=== PATIENT | male | born 1965 | race Caucasian/White ===

== ENCOUNTER 2017-02-12 05:28 | Inpatient (IN) | payer BC ==
[2017-02-01 13:53] VITALS: Ht 177.8 cm; Wt 130.8 kg
--- NOTE | 2017-02-01 14:34 | PAT Medication Instructions ---
Service Date Feb 01, 2017. Current Home Medication List Acetaminophen (Tylenol), 1,000 MG PO PRN Atorvastatin (Lipitor), 10 MG PO QAM Desonide 0.05% (Desowen 0.05%), 1 APPLN TOP 3-4XWEEK Doxycycline Monohydrate (Monodox), 40 MG PO QAM Fish Oil ([place]-3), 1 CAP PO QAM Fluticasone Propionate (Nasal) (Flonase Allergy Relief), 2 SPRAYS INTNAS PRN Lisinopril (Zestril), 5 MG PO QAM Metoprolol Succ (Toprol Xl) (Toprol-Xl ), 100 MG PO QAM Multivitamin (Multivitamin), 1 TAB PO QAM Oxymetazoline Hcl (Afrin 0.05% Nasal [place]), 1 SPRAY INTNAS PRN Rivaroxaban (Xarelto), 20 MG PO QPM [Augmentin], 1 TAB PO BID [Metronidazol], 1 DOSE TOP 3-4XWEEK Medication Instructions For Your Scheduled Surgery -Continue as directed: [Augmentin], 1 TAB PO BID Oxymetazoline Hcl (Afrin 0.05% Nasal [place]), 1 SPRAY INTNAS PRN - Hold the following medications 2 weeks prior to surgery: Fish Oil ([place]-3), 1 CAP PO QAM - Hold the following medications per your cardiologists instructions: Rivaroxaban (Xarelto), 20 MG PO QPM per anesthesia guidelines, will need to be held 3 days for spinal block - Hold the following medications 24 hours prior to surgery: [Metronidazol], 1 DOSE TOP 3-4XWEEK Desonide 0.05% (Desowen 0.05%), 1 APPLN TOP 3-4XWEEK - Hold the following medications the morning of surgery: Lisinopril (Zestril), 5 MG PO QAM Multivitamin (Multivitamin), 1 TAB PO QAM - Take the following medications the morning of surgery with a sip of water: Atorvastatin (Lipitor), 10 MG PO QAM Doxycycline Monohydrate (Monodox), 40 MG PO QAM Metoprolol Succ (Toprol Xl) (Toprol-Xl ), 100 MG PO QAM Acetaminophen (Tylenol), 1,000 MG PO PRN (if needed) Fluticasone Propionate (Nasal) (Flonase Allergy Relief), 2 SPRAYS INTNAS PRN ( if needed) - Take the following medications as scheduled the night before surgery: Acetaminophen (Tylenol), 1,000 MG PO PRN (if needed) Fluticasone Propionate (Nasal) (Flonase Allergy Relief), 2 SPRAYS INTNAS PRN ( if needed) If you have any questions please call us at [phone] or [phone] or [phone]
--- NOTE | 2017-02-01 15:04 | DIAGNOSTIC IMAGING REPORT ---
CHEST 2 VIEWS ROUTINE CLINICAL HISTORY: Preoperative evaluation. COMPARISON STUDY: No previous studies for comparison. FINDINGS: Lung volumes are normal. No pneumothorax or pleural effusion is present. Pulmonary vascularity is normal. There is no consolidation. Mild cardiomegaly is noted. IMPRESSION: 1. No acute cardiopulmonary findings. 2. Mild cardiomegaly. Electronically signed by: Scott Forbes M.D. 02/01/2017 3:02 PM Dictated Date/Time: 02/01/2017 3:02 PM
[2017-02-01 15:06] LABS: BASO % 1.2 %; BASO ABS # 0.09 K/uL (0-0.2); COMPLETE YES; EOS % 2.9 %; HEMATOCRIT 48.3 % (42-52); IG% 0.6 %; LYMPH % 21.2 %; LYMPH ABS # 1.63 K/uL (1.2-3.4); MEAN CELL VOLUME 93.6 fL (80-100); MEAN CORPUSCULAR HEMOGLOBIN 30.8 pg (25-34); MEAN CORPUSCULAR HGB CONC 32.9 g/dl (32-36); MEAN PLATELET VOLUME 10.4 fL (7.4-10.4); MONO % 14.5 %; NEUT % 59.6 %; PLATELET COUNT 202 K/uL (130-400); RED BLOOD COUNT 5.16 M/uL (4.7-6.1)
[2017-02-01 15:17] LABS: PARTIAL THROMBOPLASTIN RATIO 1.1; PROTHROMBIN TIME (PATIENT) 10.9 SECONDS (9.0-12.0)
[2017-02-01 15:18] LABS: BUN/CREATININE RATIO 12.7 (10-20); CALCIUM 9.6 mg/dl (8.5-10.1); CREATININE 0.91 mg/dl (0.60-1.40); POTASSIUM 4.4 mmol/L (3.5-5.1)
--- NOTE | 2017-02-06 09:35 | HISTORY & PHYSICAL EXAMINATION ---
DATE OF ADMISSION: 02/12/2017 CHIEF COMPLAINT: Persistent right knee pain and discomfort. HISTORY OF PRESENT ILLNESS: A 51-year-old gentleman who recently moved to the area from [place] who presents for surgical treatment of his right knee. He has got a 7+ year history of right knee pain and discomfort that has gradually gotten worse over time. He does have a history of a knee arthroscopy done back in 2006. He has also been using an director clinical research brace which has become less successful over time. Pain is constant. The more he walks, the more it hurts. He limps as the day goes on. It is affecting his quality of life and he would like to have his knee fixed. PAST MEDICAL HISTORY: Significant for: 1. Atrial fibrillation status post coblation but still on Xarelto. 2. Elevated cholesterol. 3. Hypertension. 4. Obesity with a BMI of 41.5. 5. Low back pain. PAST SURGICAL HISTORY: Include: 1. Tonsillectomy. 2. Lumbar laminectomy. 3. Orchiectomy. 4. Right knee arthroscopy done 2006. ALLERGIES: None. CURRENT MEDICINES: 1. Metoprolol 100 mg a day. 2. Lisinopril 5 mg a day. 3. Lipitor 10 mg a day. 4. Xarelto 20 mg a day. 5. Doxycycline 40 mg a day. 6. Multivitamin. 7. Fish oil. 8. Desonide cream. 9. Metronidazole cream. SOCIAL HISTORY: A 51-year-old male. He is . One drink per day. Chews tobacco. FAMILY HISTORY: Negative for heart disease, diabetes, or blood clots. REVIEW OF SYSTEMS: Negative for diabetes. Denies any neurologic problems, vascular problems or bleeding disorders. He is on Xarelto for Afib. He says he is no longer in atrial fibrillation. No history of DVT or PE in the past. PHYSICAL EXAMINATION: GENERAL: Reveals a healthy, pleasant, middle-aged male. He looks to be in pretty good health. HEAD, EYES, EARS, NOSE, AND THROAT: Exam is benign. NECK: Supple. No lymphadenopathy. LUNGS: Clear to auscultation. HEART: Regular rate and rhythm. ABDOMEN: Soft, nontender, nondistended. EXTREMITY EXAMINATION: Grossly neurovascularly intact except as follows: Examination of the right knee reveals the patient walks independently. Does limp on his right side. He has got varus alignment to his knee with a little bit of a varus thrust with weightbearing. Well healed portal sites. Small knee effusion. Range of motion 5 to 125. No instability. A little stiffness with hip motion. X-RAYS: X-rays of the right knee were reviewed. It shows advanced medial compartment DJD. He has got near complete loss of his joint space. He has got a little bit of tibial femoral subluxation. He has got some patellofemoral arthritis as well. ASSESSMENT: A 51-year-old male with a 7+ year history of right knee pain and discomfort, unresponsive to conservative treatment. He had knee arthroscopy in the past. He has failed all conservative care, it is affecting his quality of life and he would like to have his right knee replaced. PLAN: We will take him to the operating room and do a right total knee replacement. The risks and benefits of this procedure were explained to the patient including but not limited to DVT, PE, , infection, neurological injury, vascular injury, bleeding problem, pain, limited range of motion, stiffness, failure to relieve his symptoms, incomplete relief of symptoms, need for further surgery in the future, fracture, leg length inequality, nerve palsy, etc. The patient understands and desires to proceed. Informed consent was obtained. I did talk to him about holding his lisinopril the morning of surgery and his Xarelto 3 days preop. He will take his atenolol the morning of surgery. Will likely put him on low dose Xarelto 24 hours postop and then increase him to full dose probably about 3 days postop.
[~2017-02-12] VITALS: Ht 177.8 cm; Wt 130.8 kg
[2017-02-12] VITALS (8 sets, daily range): BP systolic 120–155; BP diastolic 67–99; PULSE 61–99; TEMP 36.6–37.7; O2SAT 94–99
[~2017-02-12 05:28] MED LIST: ACET-1256 PO; AFRINWC INTNAS; ATOR10TA82 PO; AUGMENTIN PO; DOXY100C76 PO; DSWCR TOP; FLUT0.15 INTNAS; LISI-729 PO; METO100T44 PO; METRONIDAZOL TOP; MULT-506 PO; OMEG10007 PO; RIVA1TAB4 PO
[2017-02-12] MEDS ORDERED: CEFAZOLIN 3000MG IV PUSH 15 ML IV SCH (06:00)
[2017-02-12] MEDS ORDERED: GABAPENTIN 300 MG CAP PO SCH (06:00)
[2017-02-12] MEDS ORDERED: FAMOTIDINE 20 MG TAB PO SCH (06:00)
[2017-02-12] MEDS ORDERED: ACETAMINOPHEN 500 MG TAB PO SCH (06:00)
[2017-02-12] MEDS ORDERED: BUPIVACAINE LIPOSOME 266 MG, BUPIVACAINE/EPINEPHRINE INJ 50 ML, SODIUM CHLORIDE 0.9% PF... INFIL SCH ×3 (06:00)
[2017-02-12] MEDS ORDERED: SCOPOLAMINE 1.5 MG TDSY TD SCH (06:00)
[2017-02-12] MEDS ORDERED: ROPIVACAINE 0.5% 5 MG/ML 30 ML VIAL ONE (06:28)
[2017-02-12] MEDS ORDERED: BUPIVACAINE 0.5 % 5 MG/1 ML PF 10ML VIAL ONE (06:28)
[2017-02-12] MEDS ORDERED: BUPIVACAINE/EPINEPHRINE 0.25% 1:200,000 30 ML VIAL ONE (06:32)
[2017-02-12] MEDS ORDERED: BACITRACIN 50000 UNIT VIAL ONE (06:32)
[2017-02-12] MEDS ORDERED: SODIUM CHLORIDE 0.9% PF 50 ML VIAL ONE (06:32)
[2017-02-12] MEDS ORDERED: BUPIVACAINE LIPOSOME 1/3% 266 MG/20 ML VIAL INFIL ONE (06:32)
--- NOTE | 2017-02-12 06:41 | History & Physical Bridge Note ---
H&P Re-Evaluation Bridge Note: I have examined the patient, reviewed the History & Physical and in the interval since the performance of the History & Physical I have noted the following changes of clinical significance: No changes noted
[2017-02-12] MEDS ORDERED: MIDAZOLAM HCL 1 MG/ML 2ML VIAL ONE ×3 (06:45→07:22)
[2017-02-12] MEDS ORDERED: FENTANYL CITRATE INJ 50 MCG/1 ML 2 ML VIAL ONE (06:45)
[2017-02-12] MEDS ORDERED: LIDOCAINE HCL 2% 2 ML VIAL (20MG/ML) ONE (06:45)
[2017-02-12] MEDS ORDERED: PROPOFOL IV EMULSION 10 MG/ML 20 ML VIAL IV ONE (06:45)
[2017-02-12] MEDS ORDERED: NURSING VERBAL MED ORDER ONE (07:30)
[2017-02-12] MEDS ORDERED: TRANEXAMIC ACID INJ 1,000 MG in SYRINGE 0 ML IV STA (07:36)
[2017-02-12] MEDS ORDERED: EpHEDrine SULFATE 50MG/5ML SYR ONE (07:44)
[2017-02-12] MEDS ORDERED: HYDROmorphone INJ 2 MG/ML SYR/VIAL IV PRN (08:15)
[2017-02-12] MEDS ORDERED: ATROPINE SULFATE 0.1 MG/ML 5ML SYR IV PRN (08:15)
[2017-02-12] MEDS ORDERED: ONDANSETRON INJ 2 MG/ML 2 ML VIAL IV PRN ×2 (08:15→08:45)
[2017-02-12] MEDS ORDERED: EpHEDrine SULFATE INJ 50 MG/ML AMP IV PRN (08:15)
[2017-02-12] MEDS ORDERED: PHENYLEPHRINE 100MCG/ML 5ML SYR IV PRN (08:15)
--- NOTE | 2017-02-12 08:40 | [facility] Post Operative Brief Note ---
Immediate Operative Summary Operative Date Feb 12, 2017. Pre-Operative Diagnosis Right Knee Advanced Degenerative Joint Disease Post-Operative Diagnosis Right Knee Advanced Degenerative Joint Disease Procedure(s) Performed Right Total Knee Arthroplasty Surgeon Dr. Sánchez Network Operations Technician Surgeon(s) ANN Fritz Estimated Blood Loss 50 cc Findings Right Knee DJD Fluids (cc crystalloids) 1800 cc Specimens A. Right Knee Bone and Tissue Drains None Anesthesia Spinal Complication(s) None Disposition Recovery Room / PACU
[2017-02-12] MEDS ORDERED: SILVER SULFADIAZINE 1% CR 50 GM JAR EXT PRN (08:45)
[2017-02-12] MEDS ORDERED: METOCLOPRAMIDE HCL INJ 5 MG/ML 2 ML VIAL IV PRN (08:45)
[2017-02-12] MEDS ORDERED: FLUTICASONE PROPIONATE NA SPR 16 GM BTL PRN (08:45)
[2017-02-12] MEDS ORDERED: ZOLPIDEM TARTRATE 5 MG TAB PO PRN (08:45)
[2017-02-12] MEDS ORDERED: ALUMINUM/MAGNESIUM/SIMETH (MAALOX MAX) 30 ML UDC PO PRN (08:45)
[2017-02-12] MEDS ORDERED: TAMSULOSIN HCL 0.4 MG CAP PO PRN (08:45)
[2017-02-12] MEDS ORDERED: MAGNESIUM HYDROXIDE SUSP 30 ML UDC PO PRN (08:45)
[2017-02-12] MEDS ORDERED: BISACODYL 10 MG SUPP PR PRN (08:45)
[2017-02-12] MEDS ORDERED: DiphenhydrAMINE HCL 50 MG/ML VIAL IV PRN (08:45)
[2017-02-12] MEDS ORDERED: MULTIVITAMIN TAB PO SCH (09:00)
--- NOTE | 2017-02-12 09:07 | DIAGNOSTIC IMAGING REPORT ---
R KNEE 1 OR 2 VIEWS ROUTINE CLINICAL HISTORY: AP/LATERAL IN PACU RIGHT KNEE postoperative evaluation COMPARISON: None. DISCUSSION: Anatomic alignment status post total right knee arthroplasty expected postoperative soft tissue change. IMPRESSION: Anatomic alignment status post right knee arthroplasty The above report was generated using voice recognition software. It may contain grammatical, syntax or spelling errors. Electronically signed by: Jeffrey Roth M.D. 02/12/2017 9:05 AM Dictated Date/Time: 02/12/2017 9:00 AM
--- NOTE | 2017-02-12 09:20 | Anesthesiology Progress Note ---
Anesthesia Post Op Note Date & Time Feb 12, 2017 at 09:20 Vital Signs Pain Intensity: 0 Vital Signs Past 12 Hours Date Time Temp Pulse Resp B/P (MAP) Pulse Ox O2 Delivery O2 Flow Rate FiO2 02/12/17 09:10 37 66 16 128/61 97 Nasal Cannula 2 02/12/17 09:00 67 16 105/63 97 Oxymask 10 02/12/17 08:50 71 16 112/59 99 Oxymask 10 02/12/17 08:43 36.2 68 16 112/72 98 Oxymask 10 02/12/17 05:57 36.7 72 16 149/99 94 Room Air Notes Mental Status: alert / awake / arousable, participated in evaluation Pt Amnestic to Procedure: Yes Nausea / Vomiting: adequately controlled Pain: adequately controlled Airway Patency, RR, SpO2: stable & adequate BP & HR: stable & adequate Hydration State: stable & adequate Anesthetic Complications: no major complications apparent
--- NOTE | 2017-02-12 09:25 | OPERATIVE REPORT ---
DATE OF OPERATION: 02/12/2017 SURGEON: Dr. Sandip Sánchez. CHIP MACHINE OPERATOR: ANN Mcghee PREOPERATIVE DIAGNOSIS: Right knee degenerative joint disease. POSTOPERATIVE DIAGNOSIS: Same. PROCEDURE PERFORMED: Right cemented posterior stabilized total knee arthroplasty. COMPLICATIONS: None. ESTIMATED BLOOD LOSS: 50 mL FLUID REPLACEMENT: 1800 mL crystalloid fluid replacement. ANESTHESIA: Spinal with adductor canal block. DRAINS: None. SPECIMENS: Right knee sent for pathology. TOURNIQUET TIME: 52 minutes at 300 mmHg. OPERATIVE INDICATIONS: The patient is a 51-year-old gentleman who has had a long history of right knee pain and discomfort that has gradually gotten worse over the past 10 years. He did have a knee arthroscopy about 10 years ago, which gave him a little bit of relief for a couple years and that is about it. He has been through extensive conservative treatment. The pain has become more and more debilitating affecting his quality of life. He elected to proceed with total knee arthroplasty. OPERATIVE FINDINGS: Operative findings revealed advanced right knee DJD. Pretty extensive grade 4 changes in all 3 compartments, most severe in the medial side. He has significant joint effusion. He had a varus alignment to his knee. OPERATIVE IMPLANTS: Operative implants consisted of: 1. Biomet Vanguard size 70 right posterior stabilized femoral component. 2. Biomet size 75 tibial tray. 3. A 12-mm posterior stabilized polyethylene insert. 4. A 31 x 8 all poly patella. OPERATIVE PROCEDURE: The patient taken to the operating room, identified and placed on the operating table in supine position. All contact areas were appropriately padded. IV antibiotics were provided by anesthesia team. A spinal anesthetic had been implemented in the holding area along with an adductor canal block. A Gordillo catheter was placed in sterile fashion. Right thigh tourniquet was then placed. The right lower extremity was then prepped and draped in the usual sterile fashion. The right leg was elevated and exsanguinated with Esmarch and tourniquet was placed at 300 mmHg. An anterior approach to the right knee was then performed through a longitudinal incision centered over the patella. Sharp dissection was carried out through the subcutaneous tissue down to the level of the IT band down to the extensor mechanism. A medial parapatellar arthrotomy incision was made. Some subperiosteal dissection was carried out medially. The fat pad was resected from beneath the patellar tendon. The lateral patellofemoral ligament was released. The patella was everted and knee was flexed. The osteophytes were taken off the distal femur. The ACL and PCL were then released from the distal femur and the tibia subluxated anteriorly. The external tibial alignment jig was then placed in the anterior face of the tibia and adjusted 16 mm medially. Proximal tibia cut was made to remove about 2 mm of bone from the most deficient aspect of the medial tibial plateau. Some osteophytes were taken off medial and posteromedially. Tibia was sized to a size 75. Attention was then drawn to the femur. The distal femur was entered with a sharp drill bit. Intramedullary canal was suctioned. A right 6-degree valgus cutting guide was placed. Distal femoral cutting block was pinned in place. Distal femoral cut was made to take an additional 3 mm of bone off the distal femur. The femur was then sized to a size 70. We did downsize this slightly. The AP cutting block was pinned parallel to the epicondylar axis, which was 3 degrees of external rotation. The anterior cut, anterior chamfer, posterior cut, posterior chamfer cuts were made. Box cutting guide was placed and adjusted slightly lateral and the box cut was made. The knee was flexed. The remnants of the medial and lateral menisci were excised. The osteophytes were taken off the posterior aspect of the femur. Trial femoral component was placed. Tibial tray was pinned in maximum external rotation and the drill and stem punch were used to create defect in the tibia for the tibial tray. The knee was then trialed and the 12-mm insert fit most appropriately. Attention was then drawn to the patella. The patella was cleaned of all soft tissues. Patellar thickness measured 25 mm in thickness and was cut down to 14. It was sized to a size 31 patella. Lug holes were drilled for a 31 patella. The lateral osteophyte was removed. Patella button was placed. Knee was taken through range of motion and the patella tracked nicely with no thumbs test. Attention was then drawn toward placement of permanent components. All trial components were removed. A bone plug was placed in the distal femur to limit blood loss. A double batch of [place]os G cement was mixed. A right size 70 posterior stabilized femoral component, size 75 tibial tray, a 12-mm posterior stabilized polyethylene insert, and a 31 x 8 all poly patella then cemented in place. Knee was brought out into full extension until cement hardened. A final cement check was then performed. Pericapsular tissues were injected with a total of 100 mL of a combination of 20 mL of Exparel, 30 mL of normal saline, 50 mL of 0.25% Marcaine with epinephrine. The patient did receive 1 gram of tranexamic acid. The tourniquet was then let down for a final tourniquet time of 52 minutes. Hemostasis was assured with use of electrocautery. The extensor mechanism was then closed with a combination of #1 PDS suture and #1 Vicryl suture in a [id number] fashion. Extensor mechanism was checked and found to be intact. The subcutaneous tissues were then closed with 2-0 Dexon suture in a buried interrupted fashion. Skin was closed with skin anson. Leg was then cleaned and dried and a sterile dressing of Xeroform, 4 x 4's, sterile cast padding and Weston bandage were applied. The patient was then transferred to the recovery room in stable condition. The patient tolerated the procedure well with no complications. All needle and sponge counts were correct at the end of the operation. I attest to the content of the Intraoperative Record and any orders documented therein. Any exception s are noted below.
[2017-02-12] MEDS: ATORVASTATIN 10 MG TAB PO SCH ×2 (10:30→10:55)
[2017-02-12] MEDS ORDERED: OXYMETAZOLINE HCL 0.05% NA SPR 15 ML BTL SCH (10:30)
[2017-02-12] MEDS: DESONIDE CR 15 GM TUBE EXT SCH (10:30)
[2017-02-12] MEDS: D5W AND 1/2NSS + 20MEQ KCL 1,000 ML IV SCH ×3 (10:31→23:06)
[2017-02-12] MEDS: TAPENTADOL ER 50 MG TABCR PO SCH ×2 (10:32→21:07)
[2017-02-12] MEDS: OXYCODONE HCL IR 5 MG TAB (IMMEDIATE RELEASE) PO PRN ×3 (10:32→19:55)
[2017-02-12] MEDS: MoRPHine SULFATE 2 MG/ML CARP IV PRN ×3 (10:53→14:40)
[2017-02-12] MEDS: MULTIVITAMIN TAB PO SCH (10:54)
[2017-02-12] MEDS: PANTOprazole SOD 40 MG TAB PO SCH (10:55)
[2017-02-12] MEDS: LISINOPRIL 5 MG TAB PO SCH (10:55)
[2017-02-12] MEDS: KETOROLAC TROMETHAMINE 30 MG/ML VIAL IV. SCH ×3 (10:59→22:59)
[2017-02-12] MEDS: FERROUS GLUCONATE 324 MG TAB PO SCH ×2 (12:27→17:25)
[2017-02-12] MEDS: ACETAMINOPHEN 500 MG TAB PO SCH ×2 (13:41→21:07)
[2017-02-12] MEDS: CEFAZOLIN IV 2,000 MG in SYRINGE 0 ML IV SCH ×2 (14:59→22:58)
[2017-02-12] MEDS ORDERED: TRANEXAMIC ACID INJ 1,000 MG in SODIUM CHLORIDE 0.9% 100ML 100 ML IV SCH (15:00)
[2017-02-12] MEDS: CHECK SCOPOLAMINE PATCH PLACEMENT SCH ×2 (15:50→23:05)
--- NOTE | 2017-02-12 16:21 | PROGRESS NOTE ---
DATE: 02/12/2017 SUBJECTIVE: A 51-year-old gentleman postop from a right knee replacement. He is doing pretty well. He is starting to have some pain in his leg. No chest pain or shortness of breath. Not feeling dizzy or lightheaded. OBJECTIVE: VITAL SIGNS: Temperature 36.6. Vital signs stable. GENERAL: Physical examination reveals a pleasant, middle-aged male, obese, sitting up in bed and eating and talking to his family. Looks comfortable. LUNGS: Clear to auscultation. HEART: Regular rate and rhythm. ABDOMEN: Soft, nontender, and nondistended. EXTREMITIES: Grossly neurovascularly intact except as follows: Examination of the right lower extremity reveals the leg to be well aligned. He can dorsiflex and plantarflex his foot appropriately. He has got brisk refill. Sensation is intact. X-RAYS: X-rays of the right knee from recovery room were reviewed. It shows a right cemented posterior stabilized total knee arthroplasty. Components looked to be in good position. No signs of problems. ASSESSMENT: A 51-year-old gentleman postop from a right knee replacement, doing well. His pain is reasonably well controlled. He is neurologically intact. PLAN: 1. DVT prophylaxis including thigh-high TEDs and SCDs. We will start him back on Xarelto at a prophylactic dose 24 hours postoperatively and back to his therapeutic dose on discharge. 2. PT/OT. Weightbear as tolerated. Right total knee protocol. 3. IV antibiotics x24 hours. 4. Pain control. Doing pretty well with current pain regimen. 5. Disposition: He is planning to be discharged to home likely with some home health once adequately recovered.
[2017-02-12] MEDS: DOCUSATE SODIUM 100 MG CAP PO SCH (19:56)
[2017-02-12] MEDS: SENNA 8.6 MG TAB PO SCH (19:57)
[2017-02-13 03:27] VITALS: BP 109/78; PULSE 86; TEMP 36.8; O2SAT 96
[2017-02-13] MEDS: KETOROLAC TROMETHAMINE 30 MG/ML VIAL IV. SCH (05:05)
[2017-02-13] MEDS: ACETAMINOPHEN 500 MG TAB PO SCH ×3 (05:05→22:00)
[2017-02-13] MEDS: OXYCODONE HCL IR 5 MG TAB (IMMEDIATE RELEASE) PO PRN ×5 (05:06→23:37)
[2017-02-13] MEDS: D5W AND 1/2NSS + 20MEQ KCL 1,000 ML IV SCH (05:16)
[2017-02-13 06:35] LABS: HEMATOCRIT 37.2 % (42-52); MEAN CELL VOLUME 92.8 fL (80-100); MEAN CORPUSCULAR HEMOGLOBIN 30.9 pg (25-34); MEAN CORPUSCULAR HGB CONC 33.3 g/dl (32-36); MEAN PLATELET VOLUME 10.9 fL (7.4-10.4); PLATELET COUNT 189 K/uL (130-400); RED BLOOD COUNT 4.01 M/uL (4.7-6.1); WHITE BLOOD COUNT 14.31 K/uL (4.8-10.8)
[2017-02-13 07:18] LABS: BUN/CREATININE RATIO 12.2 (10-20); CALCIUM 8.1 mg/dl (8.5-10.1); CREATININE 0.76 mg/dl (0.60-1.40); POTASSIUM 4.2 mmol/L (3.5-5.1)
[2017-02-13 07:22] VITALS: BP 148/77; PULSE 82; TEMP 36.8; O2SAT 95
[2017-02-13] MEDS ORDERED: NURSING VERBAL MED ORDER ONE (07:45)
--- NOTE | 2017-02-13 07:49 | PROGRESS NOTE ---
DATE: 02/13/2017 SUBJECTIVE: A 51-year-old gentleman postop day 1 from a right knee replacement. He is doing pretty well. He did have a pretty good night. Pain has been controlled. No chest pain or shortness of breath. Not feeling dizzy or lightheaded. OBJECTIVE: VITAL SIGNS: Temperature 36.8. Vital signs stable. PHYSICAL EXAMINATION: GENERAL: Reveals a healthy, pleasant, middle-aged male. He is sitting up in bed, looks pretty comfortable. EXTREMITIES: Examination of the right leg reveals the leg to be well aligned. His dressing has been reinforced. He can dorsiflex and plantarflex his foot appropriately. He is neurologically intact. LABORATORY DATA: Hemoglobin 12.1, hematocrit 37.2. White cell count 14.31. Electrolytes are stable. ASSESSMENT: A 51-year-old gentleman postop day 1 from a right knee replacement, doing pretty well. Pain is controlled. He is neurologically intact. PLAN: 1. DVT prophylaxis including thigh-high TEDs, SCDs, and put him back on his Xarelto. He has got a prophylactic dose for the next 2 days and then back to his therapeutic dose. 2. PT/OT. Weight bear as tolerated. Right total knee protocol. 3. Pain control, doing well with current pain regimen. 4. Disposition: Plan to discharge to home likely with some home health once adequately recovered.
[2017-02-13] MEDS: CHECK SCOPOLAMINE PATCH PLACEMENT SCH ×3 (08:00→23:35)
[2017-02-13] MEDS: DESONIDE CR 15 GM TUBE EXT SCH (08:50)
[2017-02-13] MEDS: DOCUSATE SODIUM 100 MG CAP PO SCH ×2 (08:51→20:55)
[2017-02-13] MEDS: FERROUS GLUCONATE 324 MG TAB PO SCH ×3 (08:51→18:03)
[2017-02-13] MEDS: ATORVASTATIN 10 MG TAB PO SCH (08:51)
[2017-02-13] MEDS: PANTOprazole SOD 40 MG TAB PO SCH (08:52)
[2017-02-13] MEDS: METOPROLOL SUCC 50MG EXT REL TAB PO SCH (08:52)
[2017-02-13] MEDS: LISINOPRIL 5 MG TAB PO SCH (08:52)
[2017-02-13] MEDS: MULTIVITAMIN TAB PO SCH (08:52)
[2017-02-13] MEDS: RIVAROXABAN 10 MG TAB PO SCH (08:52)
[2017-02-13] MEDS: TAPENTADOL ER 50 MG TABCR PO SCH ×2 (09:10→20:55)
[2017-02-13] MEDS: MoRPHine SULFATE 2 MG/ML CARP IV PRN ×3 (09:38→19:46)
[2017-02-13] MEDS: DOXYCYCLINE 40 MG PO SCH (14:26)
[2017-02-13 15:05] VITALS: BP 139/71; PULSE 89; TEMP 37.8; O2SAT 95
[2017-02-13 16:07] VITALS: TEMP 37.1
[2017-02-13 16:15] VITALS: O2SAT 95
[2017-02-13] MEDS ORDERED: MORP-157 PO (20:26)
[2017-02-13] MEDS ORDERED: ACET-24 PO (20:26)
[2017-02-13] MEDS ORDERED: RXC5 PO (20:26)
--- NOTE | 2017-02-13 20:28 | Discharge Instructions ---
Discharge Instructions Date of Service Feb 13, 2017. Admission Reason for Admission: Right Knee Degenerative Joint Disease Discharge Discharge Diagnosis / Problem: Right Knee Replacement Discharge Goals Goal(s): Decrease discomfort, Improve function, Increase independence, Improve disease control, Therapeutic intervention Activity Recommendations Activity Limitations: per Instructions/Follow-up section Weightbearing Status: Right weightbearing . Instructions / Follow-Up Instructions / Follow-Up ACTIVITY RECOMMENDATIONS: Physical Therapy: * You will go to physical therapy three times each week for four to six weeks after your surgery in order to regain your knee range of motion and to retrain your knee to work properly. * It is just as important to make sure you are getting your knee perfectly straight as it is to regain your knee bend. * Taking a pain pill an hour before therapy can help you have a more productive and comfortable therapy session. Home Exercise: * You were shown a series of exercises (heel props, heel slides, etc.) in the hospital. Do these exercises three to four times each day including the exercises you were shown in physical therapy. Walking: * Get up and walk several times each day. For the first four weeks, try not to stand or walk for more than one hour at a time. If you do stand or walk for more than one hour, you will not hurt anything, but your knee and leg will likely swell. * As you feel comfortable, you may change from the walker or crutches to a cane and then to independent walking. MEDICATIONS: New Medicine: * You will likely be taking one or more of these medications: 1. MS Contin - A long-acting pain medication. Take 1 tablet twice a day for the first ten days to decrease your baseline level of pain. 2. Oxycodone - A quick and shorter-acting pain medication. Take one to two tablets every four to six hours to lessen your pain. * The most common side effects of pain medicine and iron are nausea and constipation. If nausea or constipation is too much of a problem or if you have any questions about your new medicines or doses, call [facility] at . We will try to help you manage these issues. VERY IMPORTANT TO READ AND REVIEW" Pain: * The immediate post-operative period after knee replacement surgery is often quite painful. * You are given a prescription for pain medicine. You should take it, as directed, when you need it, especially before physical therapy and before going to bed. Pain that interferes with sleep is very common and can last several months. * You will likely need pain medicine for the first four to six weeks. It will not stop all of the pain. The pain will lessen and as you feel better, you may change to milder pain medicine such as Tylenol. * The most common side effects of pain medicine are nausea and constipation, so don't take more than you need. SPECIAL CARE INSTRUCTIONS: TEDs/Elastic Stockings: * The white elastic stockings help limit swelling and prevent blood clots from forming in your legs. The more you wear them, the more they work. * Wear them for six weeks after knee replacement surgery and four weeks after partial knee replacement. Prevention of Infection: * Take antibiotics one hour before any dental cleaning, dental work, urological procedure, gastrointestinal procedure or any invasive surgery in order to prevent your new joint from getting infected. * You may get the antibiotics from the doctor performing the procedure or you may call our office at before and we will call in a prescription to the pharmacy of your choice. Things to Watch For: * Drainage from the incision site that occurs more than one week after your surgery. * Severely increased knee/leg pain or swelling. * Increased redness at the incision site. * Fever above 102 degrees Fahrenheit. * Unusual chest pain or shortness of breath. * Unusual pain or burning with urination. Call [facility] at with any of the above problems or if you have any questions about your medicines or recovery. FOLLOW UP VISIT: Make an appointment to see your doctor for approximately two weeks after surgery for a progress check and staple removal by calling the office at . Current Hospital Diet Patient's current hospital diet: Regular Diet Discharge Diet Recommended Diet: Regular Diet Procedures Procedures Performed: Right Total Knee Arthroplasty Pending Studies Studies pending at discharge: no Medical Emergencies . Who to Call and When: Medical Emergencies: If at any time you feel your situation is an emergency, please call [phone] immediately. . Non-Emergent Contact Non-Emergency issues call your: Surgeon . "Provider Documentation" section prepared by Sandip Sánchze. . VTE Core Measure Inpt VTE Proph given/why not?: Other Anticoagulation, T.E.D. Stockings, SCD's
[2017-02-13] MEDS: SENNA 8.6 MG TAB PO SCH (20:55)
[2017-02-13 23:00] VITALS: BP 139/73; PULSE 100; TEMP 37.7; O2SAT 96
[2017-02-14] MEDS: ACETAMINOPHEN 500 MG TAB PO SCH (05:34)
[2017-02-14 06:10] VITALS: BP 122/79; PULSE 100; TEMP 37.1; O2SAT 93
[2017-02-14] MEDS: OXYCODONE HCL IR 5 MG TAB (IMMEDIATE RELEASE) PO PRN (06:42)
[2017-02-14] MEDS: CHECK SCOPOLAMINE PATCH PLACEMENT SCH (07:16)
[2017-02-14] MEDS: TAPENTADOL ER 50 MG TABCR PO SCH (07:18)
[2017-02-14] MEDS: METOPROLOL SUCC 50MG EXT REL TAB PO SCH (07:19)
[2017-02-14] MEDS: PANTOprazole SOD 40 MG TAB PO SCH (07:19)
[2017-02-14] MEDS: DOCUSATE SODIUM 100 MG CAP PO SCH (07:19)
[2017-02-14] MEDS: RIVAROXABAN 10 MG TAB PO SCH (07:19)
[2017-02-14] MEDS: FERROUS GLUCONATE 324 MG TAB PO SCH (07:19)
[2017-02-14] MEDS: ATORVASTATIN 10 MG TAB PO SCH (07:19)
[2017-02-14] MEDS: MULTIVITAMIN TAB PO SCH (07:19)
[2017-02-14] MEDS: LISINOPRIL 5 MG TAB PO SCH (07:19)
[2017-02-14] MEDS: DOXYCYCLINE 40 MG PO SCH (07:19)
[2017-02-14] MEDS: DESONIDE CR 15 GM TUBE EXT SCH (07:20)
--- NOTE | 2017-02-14 08:12 | PROGRESS NOTE ---
DATE: 02/14/2017 SUBJECTIVE: This is a 51-year-old gentleman, postop day 2, right knee replacement. He is doing pretty well. Pain is controlled, but then doing fairly well, pretty painful. No chest pain or shortness of breath. Not feeling dizzy or lightheaded. OBJECTIVE: VITAL SIGNS: Temperature 37.1. Vital signs stable. GENERAL: Reveals a pleasant middle-aged male. The patient is sitting up in the bedside with his legs hanging over the edge of the bed, looks pretty comfortable. EXTREMITIES: Examination of the right leg reveals some moderate swelling. There is some bruising and a little bit of bloody drainage on his dressing. He can dorsiflex and plantarflex his foot appropriately. NEUROLOGIC: Intact. ASSESSMENT: This is a 51-year-old gentleman with a history of atrial fibrillation, postop day 2 from right knee replacement, doing pretty well. Pain is controlled. He is neurologically intact. A little bit of bloody drainage and a little bit more swelling than average likely due to his anticoagulation requirement. PLAN: 1. DVT prophylaxis including thigh-high TEDs, SCDs and back on Xarelto. We will get prophylactic dose today and then switch to a therapeutic dose tomorrow. 2. PT/OT. Weightbearing as tolerated. Right total knee protocol. 3. Pain control. Doing pretty well with current pain regimen. 4. Disposition. Plan to discharge to home with some home health later today.
[2017-02-14 08:39] VITALS: BP 122/79; PULSE 100; TEMP 37.1; O2SAT 93
[2017-02-14] MEDS: MoRPHine SULFATE 2 MG/ML CARP IV PRN (08:53)
== END 2017-02-14 09:40 | disposition home health service (06) | DRG 470 ==
LOC: C.ACU 05:28 → C.3E 08:46 → ENRESERV 08:59
PROVIDERS: ADMIT Orthopaedic Surgery Sports Medicine; ATTEND Orthopaedic Surgery Sports Medicine
PROC: 0SRC0J9 Replacement of Right Knee Joint with Synthetic Substitute, Cemented, Open Approach (ICD-10-PCS; principal; 2017-02-12 07:00)
DX: M17.11 Unilateral primary osteoarthritis, right knee (principal); Z68.41 Body mass index [BMI] 40.0-44.9, adult; I48.91 Unspecified atrial fibrillation; I11.9 Hypertensive heart disease without heart failure; E78.00 Pure hypercholesterolemia, unspecified; E66.9 Obesity, unspecified; F17.220 Nicotine dependence, chewing tobacco, uncomplicated; Z79.899 Other long term (current) drug therapy; Z79.01 Long term (current) use of anticoagulants

== ENCOUNTER 2019-09-13 12:08 | Inpatient (IN) ==
--- NOTE | 2019-09-13 13:27 | Cardiology Consultation ---
Date of Consultation September 13, 2019 Assessment & Plan (1) Atrial fibrillation: It was my pleasure to see Mr. Packer in urgent Cardiology consultation today September 13, 2019. He is a very pleasant 54-year-old gentleman who is not previously known to our Cardiology practice. He carries a longstanding history of atrial fibrillation for which he underwent an ablation in [place] in 2013 and has been AFib free since but maintain on chronic Xarelto anticoagulation. Two days ago he woke up and started to feel himself go back in atrial fibrillation. He states he gets a hollow sensation in his chest that makes it difficult to breathe. He does not really notice his heart racing but he is sig nificantly winded with just minimal exertion and sometimes at rest. Overall, he states he just feels tired, run down and just horrible. He has been unable to golf which he normally does on almost daily basis. He did a telemedicine consult with his primary equipment cleaner in [place] yesterday who directed him to the nearest emergency department. At [facility] ER last evening and underwent 2 failed cardioversion attempts. He was discharged to home with instructions to be seen by Cardiology today as an outpatient. Currently states he just feels horrible. He has been compliant with his medi cations. He did take an extra half of metoprolol the other day that made him feel a little bit better but that was rather fleeting. Of note, he has recently been started on treatment with prednisone and methotrexate for new diagnosis of polymyalgia rheumatica and seronegative arthritis. He and his , Jeanette, also note that they been going through a great deal of stress lately after their grandson was born with several defects and has been at [facility] since April. They have also been taking care of their 3-year-old granddaughter in the meantime. PAST MEDICAL HISTORY: 1. Paroxysmal atrial fibrillation with a chads Vasc score of 1 status post ablation in 2013 on chronic Xarelto anticoagulation 2. Hypertension 3. Obstructive sleep apnea on nocturnal CPAP 4. Elevated BMI 5. Polymyalgia rheumatica 6. Arthritis 7. Dyslipidemia 8. History of testicular cancer Past Surgical History: Procedure Laterality Date ABLATE BONE TUMOR(S) PERC; RADIOFREQUENCY 2013 ARTHROPLASTY KNEE TOTAL Right 2017 Dr Sánchez COLONOSCOPY, DIAGNOSTIC (RECTUM) 11/04/2016 adenomatous polyp, diverticulosis, repeat 3 yrs/COLONOSCOPY FLEXIBLE PROXIMAL DIAGNOSTIC performed by David Barrett MD at [facility] KNEE ARTHROSCOPY/DEBRIDEMENT REMOVAL OF NECK LYMPH NODES 1999 retroperitoneal REMOVAL OF TESTIS, SIMPLE Right 2000 testicular cancer REMOVE LUMBAR SPINE LAMINA, 1 SEG L3-4 REMOVE TONSILS & ADENOIDS, UNDER 12 Family History Problem Relation Age of Onset Heart attack Mother @73 Depression Mother Hypertension Mother COPD Mother Cancer Father bladder Diabetes Father Heart Disorder Father Arthritis Sister knee replacements Hypertension Sister No Known Problems Son Thyroid Disorder Daughter Social History Tobacco Use Smoking status: Never Smoker Smokeless tobacco: Current User Types: Chew Substance Use Topics Alcohol use: Yes Frequency: 4 or more times a week Comment: beer few times weekly Drug use: No He currently has only [employer] and works from home. He is an avid golfer with a goal of golfing over 120 times a year. His , Jeanette, is a cardiac healthcare technician who was previously employed at [employer] Review of Systems: Pertinent positives as per HPI, comprehensive 10 system review otherwise negative. Allergies as of 09/13/2019 (No Known Allergies) - Reviewed 09/13/2019 Current Outpatient Medications: Cholecalciferol (VITAMIN D) 50 MCG (1999 UT) Capsule, Take 2,000 Units by mouth daily., Disp: , Rfl: folic acid 1 MG Tablet, Take 1 Tab by mouth daily., Disp: 30 Tab, Rfl: 5 METHOtrexate sodium 50 MG/2ML injection, Inject 15 mg under the skin once a week. (0.6 ml once a week). dispense 50 mg/2 ml vial with preservative., Disp: 2 Each, Rfl: 4 Tuberculin Syringe (BD TB SYRINGE) 27G X 1/2" 1 ML MISC, To use with injectable methotrexate, Disp: 12 Each, Rfl: 4 predniSONE (DELTASONE) 10 MG Tablet, Take 10mg with breakfast and 10mg with dinner, Disp: 60 Tab, Rfl: 2 Desonide 0.05 % cream, Apply topically to affected area 2 times a day. Apply to face, Disp: 30 g, Rfl: 1 Doxycycline 40 MG CPDR, Take 1 Cap by mouth daily., Disp: 90 Cap, Rfl: 3 metroNIDAZOLE, topical, (METROCREAM) 0.75 % cream, Apply topically to affected area 2 times a day. Apply to face, Disp: 45 g, Rfl: 1 amoxicillin (AMOXIL) 500 MG Capsule, 2,000 mg. Prior to dental work, Disp: , Rfl: atorvaSTATin (LIPITOR) 10 MG Tablet, Take 10 mg by mouth daily., Disp: , Rfl: lisinopril (PRINIVIL) 5 MG Tablet, Take 5 mg by mouth daily., Disp: , Rfl: metoprolol succinate XL (TOPROL XL) 100 MG TB24, Take 100 mg by mouth daily., Disp: , Rfl: Multiple Vitamins-Minerals (MULTIVITAL) Tablet, Take 1 Tab by mouth daily., Disp: , Rfl: [place]-3 Fatty Acids (FISH OIL) 1000 MG Capsule, Take 1,000 mg by mouth daily., Disp: , Rfl: rivaroxaban (XARELTO) 20 MG Tablet, Take 20 mg by mouth daily with dinner., Disp: , Rfl: PHYSICAL EXAM: Vital Signs: BP 120/72 | Pulse 102 | Resp 20 | Wt 277 lbs 9.6 oz (125.919kg) | BMI 39.27 kg/m | BSA 2.5 m General: Awake, alert and oriented x 3. No acute distress. HEENT: Normocephalic, atraumatic. Pupils equal, round and reactive to light and accommodation. Extraocular muscles are intact. Anicteric sclera. Moist mucous membranes. Neck: No JVD. No bruit. Cardiovascular: Irregularly irregular, unable to appreciate murmur, rub or gallop. Pulmonary: Clear to auscultation bilaterally. No rales, rhonchi, or wheezing. Abdomen: Bowel sounds x 4, soft. No rebound, guarding or tenderness. No organomegaly. Extremities: No clubbing, cyanosis or edema. +2 pedal pulses bilaterally. Skin: Warm and dry. IMPRESSION: 1. Symptomatic paroxysmal atrial fibrillation on chronic Xarelto anticoagulation 2. Hypertension 3. Ongoing steroid and methotrexate treatment for PMR and arthritis 4. Obstructive sleep apnea on CPAP RECOMMENDATIONS: It was my pleasure to see Mr. Packer in consultation today. The pathophysiology and treatment options for atrial fibrillation were discussed with great lengths with he and his . It was decided that we he will be admitted to telemetry today to start sotalol loading and likely DC cardioversion on 09/14. The benefits, risks and alternatives were discussed at great lengths but again they would prefer for sotalol loading and cardioversion given his significant symptoms. I will touch base with the [facility] admitting hospitalist team and he will obviously be seen by Cardiology in consultation. His metoprolol is to be discontinued and started on sotalol 80 mg p.o. twice daily. All other outpatient medications should be continued. The patient left the office in good spirits after verbalizing that all of their questions were answered to satisfaction. Prior to their next visit, they were invited to call me with any questions or concerns. Thank you very much for allowing me to participate in the care of your patient. Rajan Salazar Jr, DO, [facility], [facility] Cardiovascular Medicine [facility] at [facility] This chart was completed in part utilizing [employer] Speech Voice Recognition Software. Grammatical errors, random word insertions, prounoun errors, and incomplete sentences are an occasional consequence of this system due to software limitations, ambient noise, and hardware issues. Any formal questions or concerns about the content, text, or information contained within the body of this dictation should be directly addressed to the provider for clarification. History of Present Illness Reason for Consultation: afib with RVR Requesting Physician: Dr. Aceves Attending Physician: Sid Aceves MD Allergies Allergy/AdvReac Type Severity Reaction Status Date / Time No Known Allergies Allergy Verified 09/12/19 18:01 Home Medications Home Medications Medication Instructions Recorded Confirmed Type atorvastatin 10 mg PO QAM 10/09/18 09/12/19 History doxycycline monohydrate 40 mg PO QAM 10/09/18 09/12/19 History lisinopril 5 mg PO QAM 10/09/18 09/12/19 History multivitamin 1 tab PO QAM 10/09/18 09/12/19 History omega 6-qfq-mnh-fish oil [Fish Oil] 1 cap PO QAM 10/09/18 09/12/19 History rivaroxaban [Xarelto] 20 mg PO QPM 10/09/18 09/12/19 History amoxicillin 2,000 mg PO DIRECTED PRN 09/12/19 09/12/19 History cholecalciferol (vitamin D3) 50 mcg PO QAM 09/12/19 09/12/19 History [Vitamin D3] desonide 1 applic TOPICAL DAILY 09/12/19 09/12/19 History folic acid 1 mg PO QAM 09/12/19 09/12/19 History methotrexate sodium 15 mg SUBCUT WK 09/12/19 09/12/19 History metoprolol succinate 100 mg PO QAM 09/12/19 09/12/19 History metronidazole 1 applic TOPICAL DAILY 09/12/19 09/12/19 History prednisone See Rx Instructions .ROUTE .COMPLEX 09/12/19 09/12/19 History Patient History Social History marital status: Current Living Situation: Spouse current occupational status: employed Feels Safe at Home: Yes Smoking Status: Never smoker Hx Alcohol Use: Yes Hx Substance Use: No (1) Atrial fibrillation Atrial fibrillation type: unspecified Qualified Code(s): I48.91 - Unspecified atrial fibrillation
[2019-09-13] MEDS ORDERED: ACETAMINOPHEN 325 MG TAB PO PRN (13:38)
[2019-09-13 14:58] LABS: Basophils # (auto) 0.02 K/uL (0-0.2); Basophils % (auto) 0.1 %; Eosinophils # (auto) 0.02 K/uL (0-0.5); Eosinophils % (auto) 0.1 %; Hematocrit (blood only) 44.8 % (42-52); Hemoglobin 15.4 g/dL (14.0-18.0); Immature Granulocytes # (auto) 0.08 K/uL (0.00-0.02); Immature Granulocytes % (auto) 0.6 %; Lymphocytes # (auto) 1.24 K/uL (1.2-3.4); Mean Corpuscular Hemoglobin 32.6 pg (25-34); Mean Corpuscular Hgb Conc 34.4 g/dL (32-36); Mean Corpuscular Volume 94.7 fL (80-100); Mean Platelet Volume 10.6 fL (7.4-10.4); Monocytes # (auto) 1.18 K/uL (0.11-0.59); Monocytes % (auto) 8.5 %; Neutrophils # (auto) 11.27 K/uL (1.4-6.5); Neutrophils % (auto) 81.7 %; Platelet Count 220 K/uL (130-400); RDW Coefficient of Variation 14.2 % (11.5-14.5); RDW Standard Deviation 49.5 fL (36.4-46.3); Red Blood Count 4.73 M/uL (4.7-6.1); White Blood Count 13.81 K/uL (4.8-10.8)
[2019-09-13 15:10] LABS: INR 1.1 (0.9-1.1); Partial Thromboplastin Ratio 0.9; Partial Thromboplastin Time 26.5 Seconds (21.0-31.0); Prothrombin Time 11.1 Seconds (9.0-12.0)
[2019-09-13 15:16] LABS: Albumin Level 3.5 gm/dl (3.4-5.0); BUN Creatinine Ratio 21.1 (10-20); Creatinine Clr Calc Pharmacy 142.1 ml/min; Est GFR (African American) 118.2; Potassium 4.2 mmol/L (3.5-5.1)
[2019-09-13 15:27] LABS: Albumin Globulin Ratio 0.9 (0.9-2); Bilirubin,Total 0.5 mg/dl (0.2-1); Thyroid Stimulating Hormone 1.16 uIu/ml (0.300-4.500); Total Protein 7.5 gm/dl (6.4-8.2)
--- NOTE | 2019-09-13 15:37 | History & Physical Report ---
Date of Service September 13, 2019 Assessment & Plan Admission and Anticipated Discharge Date Admission Date: September 13, 2019 History of Present Illness Primary Care Provider: Chauncey Cruz MD Allergies Allergy/AdvReac Type Severity Reaction Status Date / Time No Known Allergies Allergy Verified 09/12/19 18:01 Home Medications Home Medications Medication Instructions Recorded Confirmed Type atorvastatin 10 mg PO QAM 10/09/18 09/12/19 History doxycycline monohydrate 40 mg PO QAM 10/09/18 09/12/19 History lisinopril 5 mg PO QAM 10/09/18 09/12/19 History multivitamin 1 tab PO QAM 10/09/18 09/12/19 History omega 3-ehm-iui-fish oil [Fish Oil] 1 cap PO QAM 10/09/18 09/12/19 History rivaroxaban [Xarelto] 20 mg PO QPM 10/09/18 09/12/19 History amoxicillin 2,000 mg PO DIRECTED PRN 09/12/19 09/12/19 History cholecalciferol (vitamin D3) 50 mcg PO QAM 09/12/19 09/12/19 History [Vitamin D3] desonide 1 applic TOPICAL DAILY 09/12/19 09/12/19 History folic acid 1 mg PO QAM 09/12/19 09/12/19 History methotrexate sodium 15 mg SUBCUT WK 09/12/19 09/12/19 History metoprolol succinate 100 mg PO QAM 09/12/19 09/12/19 History metronidazole 1 applic TOPICAL DAILY 09/12/19 09/12/19 History prednisone See Rx Instructions .ROUTE .COMPLEX 09/12/19 09/12/19 History Past Med/Surg History Medical History (Updated 09/13/19 @ 14:07 by Lety Degroot PA-C) Atrial fibrillation Hip bursitis, left Hyperlipidemia Hypertension PAT (obstructive sleep apnea) Polymyalgia rheumatica Renal cyst Testicular cancer S/P surgery in 1999 Surgical History (Updated 09/13/19 @ 14:09 by Lety Degroot PA-C) History of radiofrequency ablation procedure for cardiac arrhythmia 2013 History of removal of testicle 1999; right History of tonsillectomy and adenoidectomy History of total right knee replacement Social History Preferred Language: Eritrean Communication Ability: Effective Entry Level Accounting Clerk Required: No Beliefs That Will Affect Care: None marital status: Current Living Situation: Spouse current occupational status: employed Other Information That Helps Us Care for You: No Feels Safe at Home: Yes Safety Concerns: Feels Safe At This Time Smoking Status: Never smoker Tobacco Type: smokeless tobacco ; Do You Dip or Chew Tobacco: Yes ; Second Hand Exposure: No ; Tobacco Cessation Education Requested by Patient: No Hx Alcohol Use: Yes Alcohol type: beer Hx Substance Use: No Results & Data Results & Data ([facility]) Vital Signs (Past 12 Hours) Vital Signs Temp Pulse Resp BP Pulse Ox 09/13/19 14:36 36.8 C 103 H 22 154/118 H 99 Code Status & VTE Plan VTE Prophylaxis Plan VTE Prophylaxis will be ordered: Yes
--- NOTE | 2019-09-13 15:55 | History & Physical Report ---
Date of Service September 13, 2019 Assessment & Plan (1) Atrial fibrillation: Pt is 54 y/o M with PMH atrial fibrillation s/p ablation in 2013 in [place] on chronic Xarelto, HTN, dyslipidemia, PMR, sleep apnea, h/o testicular CA s/p surgery presented to [facility] as direct admission for A-fib. Symptoms of difficulty breathing and sensation in chest started 2 days ago. Had failed cardioversion attempt x 2 in [facility] ER yesterday. His electrolytes including magnesium were WNL yesterday and had non-detectable troponin. Pt seen in cardiology clinic today by Dr Salazar and is directly admitted to hospital for starting sotalol and possible cardioversion on 09/15/2019. Afib RVR Failed Cardioversion X2 -Covid 19: Negative -TSH:1.160 ECHO pending -Continue Xarelto -Stop metoprolol -Cardiology consult, Cardiology Plan to start sotalol today. Recommend holding metoprolol. Possible procedure 09/15/2019 and will plan to make npo at midnight then in case of procedure. -CBC, BMP, magnesium labs in am -IV Lopressor PRN -Monitor QTC closely Monitor electrolytes and replace as necessary (2) Hypertension: -Continue lisinopril -Hold metoprolol as started on sotalol as above (3) Hyperlipidemia: -Continue atorvastatin (4) Polymyalgia rheumatica: Following with Dr Mueller, rheumatology -On methotrexate -Continue prednisone, folic acid Rosacea On Doxycycline chronic suppression therapy (5) PAT (obstructive sleep apnea): -CPAP HS DVT Prophylaxis -On Xarelto Follows with Dr Cruz for routine care Pt care coordinated with Dr Aceves and I completed chart review and chart. Pt was seen and examined by Dr Aceves, Further HPI and PE per Dr Aceves. I personally reviewed the record. Patient is interviewed and examined at bedside. Patient's care is coordinated with Lety Degroot PA-C. The above chart has been edited as necessary. Admission and Anticipated Discharge Date Admission Date: September 13, 2019 History of Present Illness Chief Complaint: A-fib Primary Care Provider: Chauncey Cruz MD Pt is 54 y/o M with PMH atrial fibrillation s/p ablation in 2013 in [place] on chronic Xarelto, HTN, dyslipidemia, PMR, sleep apnea, h/o testicular CA s/p surgery presented to [facility] from outpatient cardiology office for A-fib. Pt reports 2 days ago felt like he went back into a-fib with reports of hollow sensation to chest with difficulty breathing. Reports palpitations. Was seen in [facility] ER yesterday and had failed cardioversion attempt. His electrolytes including magnesium were WNL yesterday and had non-detectable troponin. Pt seen in cardiology clinic today by Dr Salazar and is directly admitted to hospital for starting sotalol and possible procedure on 09/15/2019. Pt travelled to [place] 2 weeks ago. Denies any known Covid-19 exposure. He states that palpitations has been persistent since 3 days and is associated with shortness of breath. Also states having dizziness intermittently. He admits to taking 50mg of extra metoprolol on Wednesday and Wednesday which only helped temporarily. Denies any history of chest pain, pedal edema, diaphoresis, cough, fever, chills, fall, headache, change in vision, nausea, vomiting, abdominal pain, diarrhea, dysuria. Allergies Allergy/AdvReac Type Severity Reaction Status Date / Time No Known Allergies Allergy Verified 09/12/19 18:01 Home Medications Home Medications Medication Instructions Recorded Confirmed Type atorvastatin 10 mg PO QAM 10/09/18 09/13/19 History doxycycline monohydrate 40 mg PO QAM 10/09/18 09/13/19 History lisinopril 5 mg PO QAM 10/09/18 09/13/19 History multivitamin 1 tab PO QAM 10/09/18 09/13/19 History omega 6-nyh-vry-fish oil [Fish Oil] 1 cap PO QAM 10/09/18 09/13/19 History rivaroxaban [Xarelto] 20 mg PO QPM 10/09/18 09/13/19 History amoxicillin 2,000 mg PO DIRECTED PRN 09/12/19 09/13/19 History cholecalciferol (vitamin D3) 50 mcg PO QAM 09/12/19 09/13/19 History [Vitamin D3] desonide 1 applic TOPICAL DAILY 09/12/19 09/13/19 History folic acid 1 mg PO QAM 09/12/19 09/13/19 History methotrexate sodium 15 mg SUBCUT WK 09/12/19 09/13/19 History metoprolol succinate 100 mg PO QAM 09/12/19 09/13/19 History metronidazole 1 applic TOPICAL BID 09/12/19 09/13/19 History prednisone See Rx Instructions .ROUTE .COMPLEX 09/12/19 09/13/19 History Past Med/Surg History Medical History Atrial fibrillation Hip bursitis, left Hyperlipidemia Hypertension PAT (obstructive sleep apnea) Polymyalgia rheumatica Renal cyst Testicular cancer S/P surgery in 1999 Surgical History History of radiofrequency ablation procedure for cardiac arrhythmia 2013 History of removal of testicle 1999; right History of tonsillectomy and adenoidectomy History of total right knee replacement Family History Other Cancer Coronary heart disease Diabetes Hypertension Lung disease Social History Preferred Language: Arabic Communication Ability: Effective Application Development Director Required: No Beliefs That Will Affect Care: None marital status: Current Living Situation: Spouse current occupational status: employed Other Information That Helps Us Care for You: No Feels Safe at Home: Yes Safety Concerns: Feels Safe At This Time Smoking Status: Never smoker Tobacco Type: smokeless tobacco ; Do You Dip or Chew Tobacco: Yes ; Second Hand Exposure: No ; Tobacco Cessation Education Requested by Patient: No Hx Alcohol Use: Yes Alcohol type: beer Hx Substance Use: No Review of Systems Review of Systems: All systems reviewed & are unremarkable except as noted in HPI & below Physical Exam Physical Exam: Physical Exam: Vitals signs as noted above General Appearance:Obese, no apparent distress Head: normocephalic, Atraumatic Eyes: normal inspection, EOMI Neck: supple, Trachea midline Respiratory/Chest: Normal breath sounds, CTA, No accessory muscle use Cardiovascular: Irregularly Irregular, Tachycardia, No murmur Abdomen/GI:Soft, Non tender, Bowel sounds present Extremities/Musculoskelatal:normal inspection, no edema Neurologic/Psych:AAOX3, grossly no focal neurological deficits Skin: normal color, warm Results & Data Results & Data ([facility]) Vital Signs (Past 12 Hours) Vital Signs Temp Pulse Resp BP Pulse Ox 09/13/19 14:36 36.8 C 103 H 22 154/118 H 99 Laboratory Results Short CBC 09/13/19 Range/Units 14:42 WBC 13.81 H (4.8-10.8) K/uL Hgb 15.4 (14.0-18.0) g/dL Hct 44.8 (42-52) % Plt Count 220 (130-400) K/uL BMP 09/13/19 14:42 Sodium 137 Potassium 4.2 Chloride 108 H Carbon Dioxide 23 BUN 16 Creatinine 0.76 Glucose 106 H Calcium 9.0 Liver Function 09/13/19 Range/Units 14:42 Total Bilirubin 0.5 (0.2-1) mg/dl AST 23 (15-37) U/L ALT 64 (12-78) U/L Alkaline Phosphatase 59 (45-117) U/L Albumin 3.5 (3.4-5.0) gm/dl Diagnostic Findings CXR:Cardiomegaly with no active disease in the chest. ECG Rate (beats per minute): 96 Rhythm: atrial fibrillation Code Status & VTE Plan VTE Prophylaxis Plan VTE Prophylaxis will be ordered: Yes (1) Atrial fibrillation Atrial fibrillation type: unspecified Qualified Code(s): I48.91 - Unspecified atrial fibrillation
[2019-09-13] MEDS: SOTALOL HCL 80 MG TAB PO SCH ×2 (16:04→20:19)
[2019-09-13] MEDS ORDERED: PROMETHAZINE HCL 6.25 MG in SODIUM CHLORIDE 0.9% 50 ML IV PRN (16:42)
[2019-09-13] MEDS ORDERED: METOPROLOL TARTRATE 1 MG/ML VIAL IV PRN (16:43)
[2019-09-13] MEDS: RIVAROXABAN 20 MG TAB PO SCH (17:47)
--- NOTE | 2019-09-13 19:25 | Electrocardiogram Report ---
Test Reason : Blood Pressure : / mmHG Vent. Rate : 096 BPM Atrial Rate : 000 BPM P-R Int : 000 ms QRS Dur : 088 ms QT Int : 326 ms P-R-T Axes : 000 -12 023 degrees QTc Int : 411 ms Atrial fibrillation possible Inferior infarct (cited on or before 12-SEP-2019) Abnormal ECG When compared with ECG of 12-SEP-2019 18:56, (unconfirmed) No significant change was found Confirmed by Jamie Callejas ([id number]) on 09/13/2019 7:24:35 PM Referred By: Sid Aceves Confirmed By:Avelino Callejas
[2019-09-13] MEDS: predniSONE 5 MG TAB PO SCH (20:19)
[2019-09-14] MEDS ORDERED: PERFLUTREN LIPID MICROSPHERE (DEFINITY) IV ONE (07:06)
[2019-09-14] MEDS: CHOLECALCIFEROL 1,000 UNITS 25 MCG TAB PO SCH (08:15)
[2019-09-14] MEDS: SOTALOL HCL 80 MG TAB PO SCH ×2 (08:16→19:51)
[2019-09-14] MEDS: ATORVASTATIN 10 MG TAB PO SCH (08:16)
[2019-09-14] MEDS: lisinopriL 5 MG TAB PO SCH (08:16)
[2019-09-14] MEDS: FOLIC ACID 1 MG TAB PO SCH (08:16)
[2019-09-14] MEDS: DOXYCYCLINE HYCLATE 50 MG CAP PO SCH (08:16)
[2019-09-14] MEDS: MULTIVITAMIN TAB PO SCH (08:16)
[2019-09-14] MEDS: predniSONE 10 MG TABLET PO SCH (08:16)
[2019-09-14] MEDS: DESONIDE CR 15 GM TUBE EXT SCH (08:17)
[2019-09-14 08:32] LABS: Hematocrit (blood only) 44.5 % (42-52); Hemoglobin 14.8 g/dL (14.0-18.0); Mean Corpuscular Hgb Conc 33.3 g/dL (32-36); Mean Corpuscular Volume 96.1 fL (80-100); Mean Platelet Volume 10.7 fL (7.4-10.4); Platelet Count 220 K/uL (130-400); RDW Coefficient of Variation 14.2 % (11.5-14.5); RDW Standard Deviation 50.2 fL (36.4-46.3); Red Blood Count 4.63 M/uL (4.7-6.1); White Blood Count 11.06 K/uL (4.8-10.8)
[2019-09-14 09:14] LABS: BUN Creatinine Ratio 17.9 (10-20); Calcium 9.1 mg/dl (8.5-10.1); Creatinine Clr Calc Pharmacy 156.5 ml/min; Est GFR (Non-African American) 106.1; Magnesium 2.2 mg/dl (1.8-2.4)
--- NOTE | 2019-09-14 10:50 | Cardiology Progress Note ---
Date of Service September 14, 2019 Assessment & Plan (1) Paroxysmal atrial fibrillation: (2) Hypertension: (3) Polymyalgia rheumatica: (4) PAT (obstructive sleep apnea): 54-year-old male in hospital for paroxysmal atrial fibrillation, initiation of antiarrhythmic therapy. Patient tolerating sotalol well with spontaneous conversion to sinus rhythm Continue telemetry review EKG in a.m. Low threshold for increasing antihypertensives Subjective After spontaneous conversion Patient seen and examined, chart, medications, telemetry reviewed. No cardiac issues or complaints. Remains in sinus rhythm after spontaneous conversion overnight. No tachyarrhythmias or QT prolongation of significance. Overall feels well Review of Systems Review of Systems: All systems reviewed & are unremarkable except as noted in HPI & below Physical Exam Constitutional: WD/WN, vitals as above + obese Eyes: PERRL, conjunctivae normal, anicteric sclerae ENMT: external ear and nose normal, oropharynx normal Neck: trachea midline, no thyromegaly Respiratory: normal respiratory effort, lungs clear to auscultation Cardiovascular: Rate/Rhythm: regular rate and regular rhythm Heart Sounds: normal S1 and normal S2; no gallop and no murmur Palpation: normal PMI Ve ssels: normal carotid upstroke and radial pulses present; no JVD and no carotid bruit Extremities: no edema Gastrointestinal (Abdomen): normal bowel sounds, soft, nontender, no hepatosplenomegaly Musculoskeletal: no cyanosis or clubbing, extremities motor strength 5/5 Skin: no rashes, warm and dry Neurologic: PERRL, EOMI, accommodation nl, no face palsy, no dysarthria Psychiatric: A+Ox3, euthymic affect Results & Data Vital Signs (Past 12 Hours) Vital Signs Temp Pulse Pulse Resp BP Pulse Ox 09/14/19 09:51 69 09/14/19 07:58 36.8 C 85 18 136/84 96 09/14/19 04:42 36.7 C 67 22 137/83 98 09/14/19 00:17 37.2 C 67 20 144/84 H 98 09/14/19 00:08 70 Laboratory Results Laboratory Results - last 24 hr 09/13/19 09/13/19 09/13/19 14:42 14:42 14:42 WBC 13.81 H RBC 4.73 Hgb 15.4 Hct 44.8 MCV 94.7 MCH 32.6 MCHC 34.4 RDW Std Deviation 49.5 H RDW Coeff of Ander 14.2 Plt Count 220 MPV 10.6 H Immature Gran % (Auto) 0.6 Neut % (Auto) 81.7 Lymph % (Auto) 9.0 [place] % (Auto) 8.5 Eos % (Auto) 0.1 Baso % (Auto) 0.1 Neut # (Auto) 11.27 H Lymph # (Auto) 1.24 [place] # (Auto) 1.18 H Eos # (Auto) 0.02 Baso # (Auto) 0.02 Immature Gran # (Auto) 0.08 H PT 11.1 INR 1.1 APTT 26.5 PTT Ratio 0.9 Sodium 137 Potassium 4.2 Chloride 108 H Carbon Dioxide 23 Anion Gap 7.0 BUN 16 Creatinine 0.76 Est Cr Clr Drug Dosing 142.1 Est GFR ( Amer) 118.2 Est GFR (Non-Af Amer) 102.0 BUN/Creatinine Ratio 21.1 H Glucose 106 H Calcium 9.0 Magnesium Total Bilirubin 0.5 AST 23 ALT 64 Alkaline Phosphatase 59 Total Protein 7.5 Albumin 3.5 Globulin 4.0 Albumin/Globulin Ratio 0.9 TSH 1.160 COVID-19 PCR 09/13/19 09/14/19 09/14/19 16:01 07:40 07:40 WBC 11.06 H RBC 4.63 L Hgb 14.8 Hct 44.5 MCV 96.1 MCH 32.0 MCHC 33.3 RDW Std Deviation 50.2 H RDW Coeff of Ander 14.2 Plt Count 220 MPV 10.7 H Immature Gran % (Auto) Neut % (Auto) Lymph % (Auto) [place] % (Auto) Eos % (Auto) Baso % (Auto) Neut # (Auto) Lymph # (Auto) [place] # (Auto) Eos # (Auto) Baso # (Auto) Immature Gran # (Auto) PT INR APTT PTT Ratio Sodium 141 Potassium 4.0 Chloride 109 H Carbon Dioxide 27 Anion Gap 5.0 BUN 12 Creatinine 0.69 Est Cr Clr Drug Dosing 156.5 Est GFR ( Amer) 123.0 Est GFR (Non-Af Amer) 106.1 BUN/Creatinine Ratio 17.9 Glucose 101 H Calcium 9.1 Magnesium 2.2 Total Bilirubin AST ALT Alkaline Phosphatase Total Protein Albumin Globulin Albumin/Globulin Ratio TSH COVID-19 PCR NEGATIVE ECG Additional Comments: 14-SEP-2019 06:31:25 [facility]-CCU ROUTINE RETRIEVAL Normal sinus rhythm Normal ECG When compared with ECG of 13-SEP-2019 15:20, Sinus rhythm has replaced Atrial fibrillation Criteria for Inferior infarct are no longer Present QTc 422
[2019-09-14] MEDS: RIVAROXABAN 20 MG TAB PO SCH (17:34)
--- NOTE | 2019-09-14 18:59 | Electrocardiogram Report ---
Test Reason : Blood Pressure : / mmHG Vent. Rate : 067 BPM Atrial Rate : 067 BPM P-R Int : 144 ms QRS Dur : 096 ms QT Int : 400 ms P-R-T Axes : 017 019 043 degrees QTc Int : 422 ms Normal sinus rhythm Normal ECG When compared with ECG of 13-SEP-2019 15:20, Sinus rhythm has replaced Atrial fibrillation Criteria for Inferior infarct are no longer Present Confirmed by Jamie Callejas ([id number]) on 09/14/2019 6:58:54 PM Referred By: Sid Aceves Confirmed By:Avelino Callejas
[2019-09-14] MEDS: predniSONE 5 MG TAB PO SCH (19:52)
--- NOTE | 2019-09-14 20:40 | Hospitalist Progress Note ---
Date of Service September 14, 2019 Assessment & Plan (1) Atrial fibrillation: s/p ablation in 2014 in [place] on chronic Xarelto. Failed recent DCCV in ER x 2 a few days ago. Admitted from cardiology clinic for sotalol loading with conversion to sinus rhythm overnight, and patient is completely asymptomatic. Cont Xarelto. BB discontinued. (2) Hypertension: at goal on lisinopril 5mg per home regimen. (3) Hyperlipidemia: -Continue atorvastatin per home regimen. (4) Polymyalgia rheumatica: Following with Dr Mueller, rheumatology -On methotrexate -Continue prednisone, folic acid (5) PAT (obstructive sleep apnea): -CPAP HS (6) Rosacea: On Doxycycline chronic suppression therapy (7) Obesity: (8) DVT prophylaxis: Xarelto Full Code Dispo-to home when sotalol loading is completed and he is cleared for discharge by [employer]. Sheba Manrique DO [facility] Ad[facility] and Anticipated Discharge Date Admission Date: September 13, 2019 Subjective Pt is ambulating around the room and feeling well, No symptoms at all Started on sotalol load yesterday and converted to sinus rhythm overnight. Review of Systems Review of Systems: All systems reviewed & are unremarkable except as noted in Subjective Physical Exam Physical Exam: CONSTITUTIONAL: obese, vitals as above, generally well- appearing EYES: normal conjunctivae, no scleral icterus ENT: external ear and nose normal, MMM RESPIRATORY: clear to auscultation bilaterally, no crackles, rales or wheezes, normal respiratory effort CARDIOVASCULAR: regular rate and rhythm, S1 and 2 heard without murmurs, gallops or rubs, no JVD, no peripheral edema GASTROINTESTINAL: soft, nontender, protuberant with umbilical hernia present. MUSCULOSKELETAL: strength 5/5 throughout, head is normocephalic and atraumatic, ambulatory SKIN: warm and dry NEUROLOGIC: CN 2-12 grossly intact, normal cognition, normal speech, no gross focal deficits. PSYCHIATRIC: alert cooperative and oriented to person, place and time. Results & Data Results & Data ([facility]) Vital Signs (Past 12 Hours) Vital Signs Temp Pulse Pulse Pulse Resp BP Pulse Ox 09/14/19 20:11 36.7 C 73 20 129/93 98 09/14/19 16:48 36.9 C 76 18 160/97 H 97 09/14/19 11:38 36.9 C 68 19 146/92 H 98 09/14/19 09:51 69 Laboratory Results Short CBC 09/14/19 Range/Units 07:40 WBC 11.06 H (4.8-10.8) K/uL Hgb 14.8 (14.0-18.0) g/dL Hct 44.5 (42-52) % Plt Count 220 (130-400) K/uL BMP 09/14/19 07:40 Sodium 141 Potassium 4.0 Chloride 109 H Carbon Dioxide 27 BUN 12 Creatinine 0.69 Glucose 101 H Calcium 9.1 Medications Administered Current Inpatient Medications Acetaminophen (Tylenol) 650 mg PO Q4H PRN PRN Reason: Pain or Fever Stop: 10/13/19 13:37 Atorvastatin Cal[facility]) [facility] Stop: 10/14/19 08:59 Last Admin: 09/14/19 08:16 Dose: 10 mg Documented by: Desonide (Desowen 0.05%) 1 appln EXT DAILY [facility] Stop: 10/14/19 08:59 Last Admin: 09/14/19 08:17 Dose: Not Given Documented by: Doxycycline Hyclate (Vibramycin) [facility] Stop: 10/14/19 08:59 Last Admin: 09/14/19 08:16 Dose: 50 mg Documented by: Folic Acid (Folvite) [facility] Stop: 10/14/19 08:59 Last Admin: 09/14/19 08:16 Dose: 1 mg Documented by: Promethazine HCl 6.25 mg/ (Sodium Chloride) 50.25 mls @ 201 mls/hr IV Q6H PRN PRN Reason: Nausea And Vomiting Stop: 10/13/19 16:41 Lisinopril (Zestril) 5 mg PO [facility] Stop: 10/14/19 08:59 Last Admin: 09/14/19 08:16 Dose: 5 mg Documented by: Metoprolol Tartrate (Lopressor) 2.5 mg IV Q6 PRN PRN Reason: Tachycardia Stop: 10/13/19 17:59 Miscellaneous (Order Awaiting Action) 1 ea N/A QS [facility] Stop: 10/14/19 00:00 Last Admin: 09/14/19 15:24 Dose: Not Given Documented by: Multivitamins (Multivitamin Tab) 1 tab [facility] Stop: 10/14/19 08:59 Last Admin: 09/14/19 08:16 Dose: 1 tab Documented by: Prednisone (Prednisone) 10 [facility] Stop: 10/14/19 08:59 Last Admin: 09/14/19 08:16 Dose: 10 mg Documented by: Prednisone (Prednisone) 5 mg PO QPM [facility] Stop: 10/13/19 20:59 Last Admin: 09/14/19 19:52 Dose: 5 mg Documented by: Rivaroxaban (Xarelto) 20 mg PO QPM@1700 [facility] Stop: 10/13/19 16:59 Last Admin: 09/14/19 17:34 Dose: 20 mg Documented by: Sotalol HCl (Betapace) 80 mg PO BID [facility] Stop: 10/13/19 14:44 Last Admin: 09/14/19 19:51 Dose: 80 mg Documented by: Vitamin D (Vitamin D3) 2,000 units [facility] Stop: 10/14/19 08:59 Last Admin: 09/14/19 08:15 Dose: 2,000 units Documented by: (1) Atrial fibrillation Atrial fibrillation type: unspecified Qualified Code(s): I48.91 - Unspecified atrial fibrillation
[2019-09-15] MEDS: SOTALOL HCL 80 MG TAB PO SCH (08:45)
[2019-09-15] MEDS: DESONIDE CR 15 GM TUBE EXT SCH (08:45)
[2019-09-15] MEDS: FOLIC ACID 1 MG TAB PO SCH (08:46)
[2019-09-15] MEDS: ATORVASTATIN 10 MG TAB PO SCH (08:46)
[2019-09-15] MEDS: CHOLECALCIFEROL 1,000 UNITS 25 MCG TAB PO SCH (08:47)
[2019-09-15] MEDS: predniSONE 10 MG TABLET PO SCH (08:47)
[2019-09-15] MEDS: DOXYCYCLINE HYCLATE 50 MG CAP PO SCH (08:47)
[2019-09-15] MEDS: MULTIVITAMIN TAB PO SCH (08:47)
[2019-09-15] MEDS: lisinopriL 5 MG TAB PO SCH (08:47)
[2019-09-15] MEDS ORDERED: lisinopriL 10 MG TAB PO SCH (09:45)
--- NOTE | 2019-09-15 10:30 | Cardiology Progress Note ---
Date of Service September 15, 2019 Assessment & Plan (1) Paroxysmal atrial fibrillation: (2) Hypertension: (3) Polymyalgia rheumatica: (4) PAT (obstructive sleep apnea): 54-year-old male in hospital for paroxysmal atrial fibrillation, initiation of antiarrhythmic therapy. Patient tolerating sotalol well with spontaneous conversion to sinus rhythm on 09/13/2019 at 2025 PM. EKG this AM is normal, QTc 410 ms. Continue continuous telemetry for now, likely discharge if this afternoons EKG is acceptable. Increase Lisinopril to 10 mg/day for additional blood pressure control. Follow-up with [facility] in one week for an EKG and BP evaluation. Follow-up with Dr. Salazar as scheduled in September. Consider referral for stress testing post discharge (see echo findings below) Supervising Physician Co-Signing Physician Notes Patient seen and examined personally. Recommendations as above EKG reviewed at 12 noon normal sinus rhythm QT corrected 425 Patient tolerating sotalol exceptionally well. May be discharged with instructions of as above Subjective Patient seen and examined. Chart, medications, and telemetry reviewed. at bedside. Feeling well. Ambulatory throughout the room without difficulty. Notes blood pressures running high throughout hospitalization, especially diastolic readings. Denies chest pain, palpitations, shortness of breath, headache, unilateral complaint, dizziness, or near syncope. Continuous telemetry monitoring reveals sinus rhythm in the 60 to 80 bpm range. Patient presented in atrial fibrillation, spontaneously converting on September 13, 2019 20th 5PM September 14, 2019 TTE Interpretation Summary ([facility], Dr. Moreland): Normal-sized LV. Moderate concentric LVH. Hypokinesis of the apical inferior and septal johnson with otherwise preserved wall motion. Ejection fraction 50 to 55%. No significant valvular disease. Review of Systems Review of Systems: All systems reviewed & are unremarkable except as noted in HPI & below Physical Exam Physical Exam: General: A&Ox3. NAD. Elevated BMI. HEENT: Normocephalic. Atraumatic. PER. Conjunctiva pink, sclera clear. Neck: No overt JVD. Heart: RRR. No murmur. No rub. No gallop. Lungs: Clear to auscultation. Abdomen: +BS. Extremities: No clubbing, cyanosis, or edema. Limited neurological examination is without focal deficits. Pulses: radial=2/4, posterior tibial=2/4. Results & Data Vital Signs (Past 12 Hours) Vital Signs Temp Pulse Pulse Resp BP BP Pulse Ox 09/15/19 07:30 36.7 C 73 18 145/96 H 100 09/15/19 05:05 36.5 C 82 18 150/97 H 96 09/15/19 02:35 78 09/15/19 01:12 36.6 C 69 18 128/77 95
--- NOTE | 2019-09-15 12:51 | Electrocardiogram Report ---
Test Reason : Blood Pressure : / mmHG Vent. Rate : 064 BPM Atrial Rate : 064 BPM P-R Int : 160 ms QRS Dur : 092 ms QT Int : 398 ms P-R-T Axes : 023 016 040 degrees QTc Int : 410 ms Normal sinus rhythm Normal ECG When compared with ECG of 14-SEP-2019 06:31, No significant change was found Confirmed by Jamie Callejas ([id number]) on 09/15/2019 12:51:19 PM Referred By: Sid Aceves Confirmed By:Avelino Callejas
--- NOTE | 2019-09-15 12:58 | Electrocardiogram Report ---
Test Reason : Blood Pressure : / mmHG Vent. Rate : 077 BPM Atrial Rate : 077 BPM P-R Int : 156 ms QRS Dur : 094 ms QT Int : 376 ms P-R-T Axes : 081 020 048 degrees QTc Int : 425 ms Normal sinus rhythm Normal ECG When compared with ECG of 15-SEP-2019 06:33, (unconfirmed) No significant change was found Confirmed by Jamie Callejas ([id number]) on 09/15/2019 12:58:14 PM Referred By: Sid Aceves Confirmed By:Avelino Callejas
--- NOTE | 2019-09-15 16:08 | Discharge Summary ---
Date of Service September 15, 2019 Admission HPI Per Admitting Provider Pt is 54 y/o M with PMH atrial fibrillation s/p ablation in 2014 in [place] on chronic Xarelto, HTN, dyslipidemia, PMR, sleep apnea, h/o testicular CA s/p surgery presented to [facility] from outpatient cardiology office for A-fib. Pt reports 2 days ago felt like he went back into a-fib with reports of hollow sensation to chest with difficulty breathing. Reports palpitations. Was seen in [facility] ER yesterday and had failed cardioversion attempt. His electrolytes including magnesium were WNL yesterday and had non-detectable troponin. Pt seen in cardiology clinic today by Dr Salazar and is directly admitted to hospital for starting sotalol and possible procedure on 09/15/2019. Pt travelled to [place] 2 weeks ago. Denies any known Covid-19 exposure. He states that palpitations has been persistent since 3 days and is associated with shortness of breath. Also states having dizziness intermittently. He admits to taking 50mg of extra metoprolol on Wednesday and Wednesday which only helped temporarily. Denies any history of chest pain, pedal edema, diaphoresis, cough, fever, chills, fall, headache, change in vision, nausea, vomiting, abdominal pain, diarrhea, dysuria. Admission Exam Per Admitting Provider General Appearance:Obese, no apparent distress Head: normocephalic, Atraumatic Eyes: normal inspection, EOMI Neck: supple, Trachea midline Respiratory/Chest: Normal breath sounds, CTA, No accessory muscle use Cardiovascular: Irregularly Irregular, Tachycardia, No murmur Abdomen/GI:Soft, Non tender, Bowel sounds present Extremities/Musculoskelatal:normal inspection, no edema Neurologic/Psych:AAOX3, grossly no focal neurological deficits Skin: normal color, warm Principal Diagnosis Paroxysmal Atrial Fibrillation Discharge Exam CONSTITUTIONAL: obese, vitals as above, generally well-appearing EYES: normal conjunctivae, no scleral icterus ENT: external ear and nose normal, MMM RESPIRATORY: clear to auscultation bilaterally, no crackles, rales or wheezes, normal respiratory effort CARDIOVASCULAR: regular rate and rhythm, S1 and 2 heard without murmurs, gallops or rubs, no JVD, no peripheral edema GASTROINTESTINAL: soft, nontender, protuberant with umbilical hernia present. MUSCULOSKELETAL: strength 5/5 throughout, head is normocephalic and atraumatic, ambulatory SKIN: warm and dry NEUROLOGIC: CN 2-12 grossly intact, normal cognition, normal speech, no gross focal deficits. PSYCHIATRIC: alert cooperative and oriented to person, place and time. Discharge Data Allergies Allergy/AdvReac Type Severity Reaction Status Date / Time No Known Allergies Allergy Verified 09/12/19 18:01 Consultations 09/13/19 13:38 Consult Cardiology Routine Hospital Course (1) Atrial fibrillation: s/p ablation in 2013 in [place] on chronic Xarelto. Failed recent DCCV x 2 in ER at this facility on 09/11. Admitted from cardiology clinic for sotalol loading with conversion to sinus rhythm overnight, and patient is completely asymptomatic. Cont Xarelto. BB discontinued. He remained ambulatory during his stay, and was hemodynamically stable and afebrile, oxygenating well on room air his entire hospitalization. He remained in sinus rhythm also throughout the remainder of his hospitalization. Successive EKGs were monitored with normal corrected QT intervals noted. Blood pressure was slightly elevated and his lisinopril was increased. Close primary care follow-up is recommended to follow electrolytes and kidney function with the increased dosage of VERA inhibitor. Cardiology followup as recommended. He was discharged in stable condition. (2) Polymyalgia rheumatica: (3) PAT (obstructive sleep apnea): Total Time Total Time Spent Total Time Spent (In Minutes): 60 Total Time Includes: Examination of the Patient, Discharge Planning, Medication Reconciliation and Communication With Other Providers Discharge Plan Discharge Items Patient Disposition: Home - Self-Care Reason For Visit: AFIB Discharge Diagnosis: Paroxysmal Atrial Fibrillation Condition on Discharge: Good Activity: Resume your previous activity Non-emergency contact: Primary Care Provider and Real Estate Leasing Agent Call non-emergency contact if: you have any medication questions and your symptoms worsen Follow-up/Referrals: Chauncey Cruz MD [Primary Care Provider] - 09/19/19 11:00 am (09/19/2019 11:00 AM Provider Chauncey Cruz III, MD [facility] ) Diet: Heart Healthy Addtl Attending Provider Instructions: Please take all medications as instructed on discharge list below. Please note multiple changes. Monitoring bloodwork is recommended in 2-4 weeks after the change in your blood pressure medication. This can be ordered by your primary care provider (PCP). Please follow-up with your PCP at the date/time above to follow-up from hospital discharge. Please follow-up with your office clinician as instructed. It was a pleasure taking care of you! Please call if you have any questions or problems. You can reach a [facility] hospitalist on duty at [facility] 24 hours a day by calling [phone]. Take care of yourself. Sheba Manrique, DO [facility] Hospitalist Pending Studies at Discharge: No Stand-Alone Forms: My [facility], Smoking Cessation Medications and DC Order Prescriptions: New lisinopril 10 mg Tablet 10 mg PO QAM Qty: 30 RF: 1 sotalol 80 mg Tablet 80 mg PO BID Qty: 60 RF: 1 Continued multivitamin Tablet 1 tab PO QAM RF: 0 atorvastatin 10 mg Tablet 10 mg PO QAM RF: 0 doxycycline monohydrate 40 mg Capsule,Ir - Delay Rel,Biphase 40 mg PO QAM RF: 0 omega 2-giz-nws-fish oil [Fish Oil] 1,000 mg (120 mg-180 mg) Capsule 1 cap PO QAM RF: 0 Xarelto 20 mg Tablet 20 mg PO QPM RF: 0 prednisone 10 mg tablet See Rx Instructions .ROUTE .COMPLEX RF: 0 methotrexate sodium 25 mg/mL solution 15 mg subcut WK RF: 0 folic acid 1 mg tablet 1 mg PO QAM RF: 0 cholecalciferol (vitamin D3) [Vitamin D3] 50 mcg (2,000 unit) Capsule 50 mcg PO QAM RF: 0 desonide 0.05 % Cream 1 applic TOPICAL DAILY RF: 0 amoxicillin 500 mg Tablet 2,000 mg PO DIRECTED PRN (Reason: Prior to Dental Work) RF: 0 metronidazole 0.75 % Cream 1 applic TOPICAL BID RF: 0 Discontinued lisinopril 5 mg Tablet 5 mg PO QAM RF: 0 metoprolol succinate 100 mg tablet extended release 24 hr 100 mg PO QAM RF: 0 Discharge Orders: Discharge Order (Routine); Ordered 09/15/19 Ordered By: Sheba Manrique Admission Data Admit Date/Time: 09/13/19 14:20 Attending Provider: Sheba Manrique Admit Provider: Sid Aceves Primary Care Provider: Chauncey Cruz Other Providers: Varghese Moreland Other Interventions: Discharge Summary Assessment (RN) Last Done: 09/15/19 16:50 DC Date/Time DO NOT enter until pt leaves facility: 09/15/19 17:04
== END 2019-09-15 17:04 | disposition home or self-care (01) | DRG 309 ==
LOC: SUATTDRO 14:20 → 2S 14:20 → 2E 19:02